=== PATIENT | male | born 2000 | race Caucasian/White ===

== ENCOUNTER → 2020-12-21 17:51 | Outpatient (CLI) | payer BC, SELFPAY ==
--- NOTE | ~2020-12-21 | XR_ITS ---
XR hand LT 2V DATE: 12/21/2020 18:03 INDICATION: Injury TECHNIQUE: AP and lateral views of hand and lateral view of fifth digit COMPARISON: None FINDINGS: No fracture or dislocation, periosteal reaction or bone destruction, significant joint spac e narrowing, erosive change or chondrocalcinosis. IMPRESSION: Negative Reviewed, dictated and finalized at location A. IMPRESSION: Negative
== END ==
PROVIDERS: PCP Family Medicine; Visit Provider Family Medicine
DX: S69.92XA Unspecified injury of left wrist, hand and finger(s), initial encounter (principal)
CPT/HCPCS: 73120

== ENCOUNTER 2021-06-08 18:28 | Emergency (ER) | payer BC, SELFPAY ==
--- NOTE | 2021-06-08 19:07 | ED.URI ---
HPI - URI/Sore Throat General Chief Complaint: Upper Respiratory Infection Stated Complaint: cough Time Seen by Provider: 06/08/21 19:07 Source: patient and RN notes reviewed History of Present Illness HPI Narrative: Patient is a 20-year-old male who is presents to the urgent care with complaints of a cough since that has worsened. Patient is on a Z-Aaron per his primary care doctor and they wanted to make sure he did not need a steroid . Patient states that he has not taken anything [id number] for his symptoms. States that he has had a low-grade fever but has not taken Tylenol or ibuprofen. Patient states that he is done to rapid Covid test at home and both have been negative. Patient does not have the Covid vaccine but denies of any Covid exposures. Denies of any shortness of breath or chest pain. No other acute complaints. No acute distress noted. Patient aware the plan of care. Some parts of this dictation were generated by voice recognition software and may contain typographical and/or grammatical inaccuracies. Related Data Allergies Allergy/AdvReac Type Severity Reaction Status Date / Time No Known Allergies Allergy Verified 06/08/21 19:42 Review of Systems Review of Systems: CONSTITUTIONAL: Denies fever, chills, or sweats. EYES: Denies visual changes, redness, or discharge. ENT: Denies rhinorrhea, congestion, sore throat, or otalgia. CARDIOVASCULAR: Denies chest pain, palpitations, or edema. RESPIRATORY reports of worsening cough without dyspnea GASTROINTESTINAL: Denies abdominal pain, nausea, vomiting, or diarrhea. GENITOURINARY: Denies dysuria or hematuria. SKIN: Denies rash or itching. MUSCULOSKELETAL: Denies back pain, joint pain, or myalgia. NEUROLOGIC: Denies headache, numbness, or weakness. All other systems reviewed are negative, except as documented in HPI. [facility] Past Medical History Medical History (Updated 06/08/21 @ 19:43 by ERROL Martell) Acute low back pain with bilateral sciatica BMI 35.0-35.9,adult Cough with exposure to COVID-19 virus Injury of left little finger Family History Family History (Updated 03/27/19 @ 16:34 by DOCTOR UNKNOWN) Grandparent Diabetes mellitus, Onset Age: 65 Carcinoma of colon, Onset Age: 51 Family history of lung cancer Father Hypertension Patient's father is in good health Mother Hypertension Patient's mother is in good health Social History Social History (Updated 04/28/21 @ 16:08 by Jacque Rocha MA) Smoking status: Never smoker Alcohol intake: current Drinks per week: 2 Alcohol use details: whiskey Substance use: never Substance use type: does not use Comments At the time of my signature, I reviewed and agree with the nursing past medical, surgical, social, and family history. There is no relevant family history pertinent to the patient complaint. Exam Narrative: GENERAL: This is a well-nourished, well-developed patient, in no apparent distress. HEAD: normocephalic, atraumatic. EYES: PERRL. Sclera clear/white. Vision is grossly intact. EARS: External ears normal, auditory canals clear and without drainage, TMs normal without perforation. Hearing grossly intact. NOSE: External nose normal with no obvious nasal discharge, nares without redness, no rhinorrhea. THROAT: Mucous membranes moist, posterior pharynx clear. Moderate postnasal drainage NECK: Neck supple CARDIOVASCULAR: Regular rate and rhythm without murmurs, gallops, or rubs. RESPIRATORY: Clear to auscultation. Breath sounds equal bilaterally. No wheezes, rales, or rhonchi. Notable dry cough on exam SKIN: warm, intact with no suspicious lesions or rash, good texture and turgor. NEURO: awake, alert, and oriented to person, place and time. There were no obvious focal neurologic abnormalities. EXTREMITIES: No clubbing, cyanosis, or edema. Course Vital Signs Vital signs: Vital Signs Temperature 98.1 F 06/08/21 19:40 Pulse Rate 120
[2021-06-08 19:40] VITALS: BP 133/85; PULSE 120; RESP 18; TEMP 37.9; O2SAT 98
== END 2021-06-08 19:48 | disposition home or self-care (01) ==
PROVIDERS: Emergency Provider Nurse Practitioner Family; PCP Family Medicine
DX: J40 Bronchitis, not specified as acute or chronic (principal)
CPT/HCPCS: 99213; G0463

== ENCOUNTER 2024-06-13 11:04 | Outpatient (CLI) | payer BC, SELFPAY ==
--- NOTE | ~2024-06-13 | XR_ITS ---
XR shoulder RT min 2V 06/13/2024 11:30 INDICATION: Right shoulder pain PROCEDURE: 5 views right shoulder COMPARISON: No prior studies for comparison. FINDINGS: Fracture, dislocation or subluxation is not identified. The soft tissues appear within norm al limits. No foreign bodies are identified. IMPRESSION: 1: NO ACUTE BONE OR JOINT ABNORMALITY IDENTIFIED. Reviewed, dictated and finalized at location B. SERVICE TEAM MEMBER
== END 2024-06-13 11:05 | disposition home or self-care (01) ==
LOC: ANHIMG 11:07
PROVIDERS: PCP Family Medicine; Visit Provider Nurse Practitioner Family
DX: M25.511 Pain in right shoulder (principal)
CPT/HCPCS: 73030